=== PATIENT | female | born 1985 | race Caucasian/White ===

== ENCOUNTER 2021-07-31 01:39 | Day surgery (SDC) | payer BC, SELFPAY ==
[2021-07-23 12:55] VITALS: BMI 25.9
--- NOTE | 2021-07-23 13:03 | PC.NURSE ---
Report to the Outpatient Waiting Room, entrance under the green pavilion located off [facility], at time 0600 on date 07/31/21. OR Time: 0730. - You and your visitor will be asked a series of questions to screen for COVID 19 for your protection. - A mask is required within the hospital. One visitor will be allowed to accompany the patient into the hospital. Patients visitor will be instructed to remain with patient at all times or leave the building. We will allow the visitor to come back to the postoperative area when patient is ready. Preoperative COVID Testing Requirements: TO E-MAIL COPY OF CARD No COVID Test needed if: (proof is required; if not received patient will have Rapid Test prior to entry) - Patient has received COVID Vaccine at least 14 days prior to procedure date or - Patient has positive COVID test result within last 90 days of surgery date. COVID Test needed if above criteria is not met Patients may have clear liquids (water, carbonated beverages, clear teas, apple juice) until 3 hours prior to surgery with a maximum of 20 ounces. - No food from midnight until time of surgery Take the following medications with a SIP of water the morning of surgery: SERTRALINE Medications to discontinue per physician: N/A Date to take last dose: N/A Please no make-up, nail spanish, hairspray, perfume, deodorant, or body powder the day of surgery. No jewelry (including any body piercings) or valuables the day of surgery, leave them at home. Please take a shower or bath the night before, or the morning of, surgery with an antibacterial soap. Wear comfortable, loose fitting clothing. - Jewelry must be removed prior to entering the operating room. Rings and piercings that are not removed may be cut off. - The hospital will not accept responsibility for valuables. - Please leave all valuables, including medications, at home the day of surgery. If you are going home after surgery, a licensed short haul driver must drive you home. - NO public transportation without another adult. - We recommend that an adult stay with you for 24 hours following discharge. - We also recommend that you do not drive, make important decision, drink alcoholic beverages, or take any drugs that were not prescribed by your health care provider for at least 24 hours after your discharge time. Follow any additional instructions given to you from your surgeon. Telephone instructions given to HERMILA ANN and asked if any additional questions and then verbalized understanding. Patient advised to call surgeon office or pre surgery nurse liaison [phone] if any additional questions.
[2021-07-31] MEDS: LACTATED RINGERS 1,000 ML 30 ML IV CONT (06:45)
[2021-07-31] MEDS: ACETAMINOPHEN 500 MG TABLET 1000 MG PO (06:48)
--- NOTE | 2021-07-31 06:58 | WPDANESEPPF ---
Anes - Initial Pre Proc Eval Procedure: Operation Date: 07/31/21 07:30 Proposed Procedures p Loop Electrical Excision Procedure - Holly Nath MD Date/Time: 07/31/21 06:58 Surgeon: Holly Nath MD Pre Op Diagnosis: moderate cervical dysplasia Patient Data Age: 35 Gender: F Height: 1.83 m Weight: 86.64 kg Allergies Allergy/AdvReac Type Severity Reaction Status Date / Time No Known Allergies Allergy Unverified 07/23/21 12:54 Home Medications Medication Instructions Recorded Confirmed Type lurasidone [Latuda] 60 mg PO QPM 07/23/21 07/23/21 History sertraline 50 mg PO DAILY 07/23/21 07/23/21 History Patient hx anesthesia problems: none Family hx anesthesia problems: none Results Review: All pre-operative results and documents have been reviewed as part of the pre-operative evaluation. [facility] Past Medical History Medical History Bipolar 1 disorder Hx of migraines Social History Social History Smoking packs per day: 1 Smoking cigarettes per day: 20.0 Years smoked: 5 Smoking pack-years: 5.00 Smoking status: Former smoker Tobacco type: cigarettes Smoking end date: 05/09/07 Alcohol intake: never Substance use: current Substance use type: marijuana Living arrangements: with family Additional living arrangements comments: DAUGHTER Spiritual care concerns: No Anes - Eval Final PreProcedure Day of Procedure 07/31/21 06:58 Patient weight: normal Heart: regular rate and rhythm Lungs: clear to auscultation Airway: Mallampati scale class II Neurological: alert and oriented ASA classification: III Emergent: no Anesthetic plan: proceed Anesthesia type and monitoring: general GIVS and standard monitoring Results Review: All pre-operative results and documents have been reviewed as part of the pre-operative evaluation. Informed Consent: The patient's anesthetic plan and its attendant risks and benefits were discussed with the patient/family/POA. Questions were solicited and answers provided to the satisfaction of the patient/family/POA.
[2021-07-31] MEDS: MIDAZOLAM HCL (*CRX) 2 MG/2 ML VIAL IV PUSH (07:11)
--- NOTE | 2021-07-31 07:14 | PM.IMHP ---
H&P: HPI History of Present Illness Date/Time: 07/31/21 07:14 Chief Complaint: CIN2 Narrative: Elizabeth is a 35yo presents for LEEP for CIN2. ECC was negative. Pt plans no more children. Has IUD in. Has severe anxiety. Review of Systems Review of Systems: All systems reviewed & are unremarkable except as noted in HPI and below PMFSH Past Medical History Medical History Bipolar 1 disorder Hx of migraines Social History Social History Smoking packs per day: 1 Smoking cigarettes per day: 20.0 Years smoked: 5 Smoking pack-years: 5.00 Smoking status: Former smoker Tobacco type: cigarettes Smoking end date: 05/09/07 Alcohol intake: never Substance use: current Substance use type: marijuana Living arrangements: with family Additional living arrangements comments: DAUGHTER Spiritual care concerns: No Meds Home Medications and Allergies Home Medications Medication Instructions Recorded Confirmed Type lurasidone [Latuda] 60 mg PO QPM 07/23/21 07/23/21 History sertraline 50 mg PO DAILY 07/23/21 07/23/21 History Allergies Allergy/AdvReac Type Severity Reaction Status Date / Time No Known Allergies Allergy Unverified 07/23/21 12:54 Exam Const: General: no acute distress Resp: Effort & Inspection: normal respiratory effort Auscultation: clear to auscultation bilaterally Cardio: Rate: regular rate Rhythm: regular rhythm GI: GI Palp: Yes Soft to palpation Extrem: General: normal to inspection Assessment and Plan Assessment and plan (1) BLANCA II (cervical intraepithelial neoplasia II): Code(s): N87.1 - Moderate cervical dysplasia Status: Acute Additional Plan Previously discussed RBA of LEEp for preventing cervical cancer. Has IUD in, we discussed I will attempt to keep string intact, but there is a risk of string getting cut. Will proceed with LEEP.
--- NOTE | 2021-07-31 07:18 | WPDHPUPDATE1 ---
History and Physical Update Update Date/Time: 07/31/21 07:18 History and Physical has been reviewed, including an updated exam of the patient. There are NO changes in the patient's condition. Risks, benefits, and alternatives have been discussed and questions answered. Patient agrees to proceed with procedure.
[2021-07-31 07:23] VITALS: BP 118/77; PULSE 91; RESP 18; TEMP 36.7; O2SAT 98
[2021-07-31] MEDS: KETOROLAC 30 MG/ML VIAL (*BKC) IV PUSH (07:48)
--- NOTE | 2021-07-31 07:54 | P.OP_ITS ---
Procedure Note - Detailed Date of Procedure 07/31/21 Pre-op Diagnosis moderate cervical dysplasia Post-op Diagnosis Same Procedure Performed LEEP Surgeon Holly Nath MD Occupational Health And Safety Manager none Anesthesia MAC and Local Indications CIN2 on colposcopy biopsy, ECC negative Findings Acetowhite on much of posterior lip of cervix. Description of Procedure The patient was taken to the operating room and placed in supine position. She received MAC and was placed in dorsal lithotomy in stirrups. The vulva and vagina were prepped and draped. A coated speculum was placed in the vagina and the cervix visualized. 10cc 1/4% marcaine with epinepherine was instilled in a paracervical block. Lugols was applied with the findings noted above. THe IUD string was tucked into the cervix to avoid cutting it. The loop was used to excise the affected part of the cervix, focused mainly on the posterior lip. Following excision of the lesion, ball cautery was used, followed by Monsels for hemostasis. THe speculum was removed. The patient was awakened from anesthesia and taken to the recovery room in good condition. Estimated Blood Loss 20 Drains No Packing No Pathology Yes Complications No immediate complications Condition Stable Disposition Same day
[2021-07-31 08:00] VITALS: BP 104/65; PULSE 90; RESP 16; O2SAT 96
[2021-07-31 08:30] VITALS: BP 113/69; PULSE 57; RESP 16
== END 2021-07-31 08:53 | disposition home or self-care (01) ==
PROVIDERS: Visit Provider Obstetrics & Gynecology
PROC: 0UBC7ZZ Excision of Cervix, Via Natural or Artificial Opening (ICD-10-PCS; CPT 57522; principal; 2021-07-31 07:30)
DX: N87.0 Mild cervical dysplasia (principal); F31.9 Bipolar disorder, unspecified; F12.90 Cannabis use, unspecified, uncomplicated; F41.9 Anxiety disorder, unspecified; Z97.5 Presence of (intrauterine) contraceptive device; Z87.891 Personal history of nicotine dependence
CPT/HCPCS: 57522; 88305; A9270; J1885; J2250; J2704; J3010; J7120